=== PATIENT | male | born 1995 | race Caucasian/White ===

== ENCOUNTER 2017-10-13 11:10 | Emergency (ER) | payer MEDICARE, OTHER, MEDICAID ==
[~2017-10-13] VITALS: Ht 177.8 cm; Wt 66.8 kg
[2017-10-13] MEDS ORDERED: IPRATROPIUM BROMIDE 0.5 MG/2.5 ML NEB SOLUTION NEB ONE (11:30)
[2017-10-13] MEDS ORDERED: ALBUTEROL SULFATE 2.5 MG/0.5 ML NEB SOLUTION NEB ONE (11:30)
[2017-10-13] MEDS ORDERED: ALBU8.5H8 IH (11:36)
[2017-10-13] MEDS ORDERED: ALBU8HFA PO (11:36)
[2017-10-13 12:15] LABS: BASOPHILS % (AUTO) 0.5 % (0.0-2.0); EOSINOPHILS % (AUTO) 3.2 % (1.0-6.0); HEMATOCRIT 47.5 % (41-53); HEMOGLOBIN 16.8 g/dL (13.5-17.5); LYMPHOCYTES # (AUTO) 1.6 K/uL (1.0-4.8); LYMPHOCYTES % (AUTO) 32.6 % (22.0-44.0); MEAN CORPUSCULAR HEMOGLOBIN 29.6 pg (26.0-34.0); MEAN CORPUSCULAR HGB CONC 35.4 G/dL (31.0-37.0); MEAN CORPUSCULAR VOLUME 84 fL (80-100); MONOCYTES # (AUTO) 0.4 K/uL (0.1-1.0); MONOCYTES % (AUTO) 8.6 % (2.0-9.0); NEUTROPHILS # (AUTO) 2.6 K/uL (1.8-7.7); NEUTROPHILS % (AUTO) 55.1 % (40.0-70.0); PLATELET COUNT (AUTO) 137 K/uL (150-450); RED BLOOD CELL COUNT(AUTO) 5.68 MIL/uL (4.50-5.90); RED CELL DISTRIBUTION WIDTH 12.8 % (11.5-14.5)
[2017-10-13 12:28] LABS: ANION GAP 4 mmol/L (8-16); CALCIUM, TOTAL 9.3 mg/dL (8.8-10.5); CARBON DIOXIDE 34 mmol/L (22-29); CHLORIDE 103 mmol/L (98-107); CREATININE 0.96 mg/dL (0.60-1.30); GLOMERULAR FILTR. RATE CALC > 60 mL/min (>60); GLUCOSE,RANDOM 87 mg/dL (70-110); POTASSIUM 3.3 mmol/L (3.5-5.1); SODIUM SERUM 141 mmol/L (136-145); UREA NITROGEN, BLOOD 10 mg/dL (7-18)
[2017-10-13 12:36] LABS: ALANINE AMINOTRANSFERASE 281 U/L (12-78); ALBUMIN 4.1 g/dL (3.4-5.0); ALKALINE PHOSPHATASE 79 U/L (46-116); ASPARTATE AMINOTRANSFERASE 111 U/L (15-37); BILIRUBIN,TOTAL 0.7 mg/dL (0.1-1.0); TOTAL PROTEIN, SERUM 7.1 g/dL (6.4-8.2)
[2017-10-13 13:35] LABS: AMPHET/METH SCREEN,URINE NEGATIVE (NEGATIVE); BARBITURATE SCREEN, URINE NEGATIVE (NEGATIVE); BENZODIAZEPINES SCREEN,URINE NEGATIVE (NEGATIVE); CANNABINOID SCREEN,URINE POSITIVE (NEGATIVE); COCAINE SCREEN,URINE NEGATIVE (NEGATIVE); METHADONE SCREEN, URINE NEGATIVE (NEGATIVE); OPIATE SCREEN,URINE NEGATIVE (NEGATIVE)
[2017-10-13 13:37] LABS: PHENCYCLIDINE SCREEN,URINE NEGATIVE (NEGATIVE)
[2017-10-13] MEDS ORDERED: LORazepam 1 MG TABLET PO ONE (13:45)
[2017-10-13] MEDS ORDERED: ALBUTEROL SULFATE HFA 90 MCG/PUFF 8 GM INHALER IH ONE (14:00)
[2017-10-13] MEDS ORDERED: POTASSIUM CHLORIDE 20 MEQ ER TABLET PO ONE (14:15)
[2017-10-13 15:40] VITALS: BP 119/68
== END 2017-10-13 16:08 | disposition home or self-care (01) ==
LOC: EMS 11:11
DX: J45.901 Unspecified asthma with (acute) exacerbation (principal); F17.210 Nicotine dependence, cigarettes, uncomplicated; F12.90 Cannabis use, unspecified, uncomplicated
CPT/HCPCS: 94640; 99285; 99406; J3535

== ENCOUNTER 2017-11-11 09:14 | Emergency (ER) | payer OTHER, MEDICARE, MEDICAID ==
[~2017-11-11] VITALS: Ht 177.8 cm; Wt 65.9 kg
[~2017-11-11 09:14] MED LIST: ALBU8.5H8 IH; ALBU8HFA PO
[2017-11-11 09:35] VITALS: BP 129/79
[2017-11-11] MEDS ORDERED: ALPR0.5T8 PO (09:37)
[2017-11-11] MEDS ORDERED: LORazepam 2 MG TABLET PO ONE (10:30)
[2017-11-11 10:42] LABS: AMPHET/METH SCREEN,URINE NEGATIVE (NEGATIVE); BARBITURATE SCREEN, URINE NEGATIVE (NEGATIVE); BENZODIAZEPINES SCREEN,URINE POSITIVE (NEGATIVE); CANNABINOID SCREEN,URINE POSITIVE (NEGATIVE); COCAINE SCREEN,URINE NEGATIVE (NEGATIVE); METHADONE SCREEN, URINE NEGATIVE (NEGATIVE); OPIATE SCREEN,URINE NEGATIVE (NEGATIVE)
[2017-11-11 10:45] LABS: PHENCYCLIDINE SCREEN,URINE NEGATIVE (NEGATIVE)
== END 2017-11-11 12:36 | disposition home or self-care (01) ==
LOC: EMS 09:19
DX: F43.23 Adjustment disorder with mixed anxiety and depressed mood (principal); J45.909 Unspecified asthma, uncomplicated; F12.90 Cannabis use, unspecified, uncomplicated; F17.210 Nicotine dependence, cigarettes, uncomplicated
CPT/HCPCS: 99284; 99406

== ENCOUNTER 2017-11-23 22:10 | Emergency (ER) | payer OTHER, MEDICARE, MEDICAID ==
[~2017-11-23] VITALS: Ht 177.8 cm; Wt 150.0 kg
[~2017-11-23 22:10] MED LIST changes: +ALPR0.5T8 PO
[2017-11-23] MEDS ORDERED: LITH300C3 PO (22:27)
[2017-11-23] MEDS ORDERED: LITH20CA PO (22:27)
[2017-11-23] MEDS ORDERED: LITH300T PO (22:31)
[2017-11-23] MEDS ORDERED: HydrOXYzine HCL 10 MG TABLET PO ONE (23:30)
[2017-11-23 23:51] VITALS: BP 119/55
== END 2017-11-24 00:41 | disposition home or self-care (01) ==
LOC: EMS 22:11
DX: R07.9 Chest pain, unspecified (principal); F41.9 Anxiety disorder, unspecified; J45.909 Unspecified asthma, uncomplicated; F12.90 Cannabis use, unspecified, uncomplicated; F17.210 Nicotine dependence, cigarettes, uncomplicated
CPT/HCPCS: 93005; 99284

== ENCOUNTER 2018-01-12 18:00 | Emergency (ER) | payer OTHER, MEDICARE, MEDICAID ==
[~2018-01-12] VITALS: Ht 175.3 cm; Wt 61.4 kg
[~2018-01-12 18:00] MED LIST changes: +LITH300T PO
[2018-01-12] MEDS ORDERED: QUEtiapine FUMARATE 100 MG TABLET PO ONE (18:45)
[2018-01-12] MEDS ORDERED: ALPRAZolam 0.25 MG TABLET PO ONE (18:45)
[2018-01-12 19:11] LABS: BASOPHILS % (AUTO) 0.4 % (0.0-2.0); EOSINOPHILS % (AUTO) 1.5 % (1.0-6.0); LYMPHOCYTES # (AUTO) 1.4 K/uL (1.0-4.8); LYMPHOCYTES % (AUTO) 20.7 % (22.0-44.0); MEAN CORPUSCULAR HEMOGLOBIN 30.1 pg (26.0-34.0); MEAN CORPUSCULAR HGB CONC 35.8 G/dL (31.0-37.0); MEAN CORPUSCULAR VOLUME 84 fL (80-100); MONOCYTES # (AUTO) 0.5 K/uL (0.1-1.0); NEUTROPHILS # (AUTO) 4.8 K/uL (1.8-7.7); NEUTROPHILS % (AUTO) 70.4 % (40.0-70.0); PLATELET COUNT (AUTO) 149 K/uL (150-450); RED BLOOD CELL COUNT(AUTO) 5.31 MIL/uL (4.50-5.90); RED CELL DISTRIBUTION WIDTH 12.1 % (11.5-14.5)
[2018-01-12 19:18] LABS: AMPHET/METH SCREEN,URINE NEGATIVE (NEGATIVE); BARBITURATE SCREEN, URINE NEGATIVE (NEGATIVE); BENZODIAZEPINES SCREEN,URINE NEGATIVE (NEGATIVE); CANNABINOID SCREEN,URINE NEGATIVE (NEGATIVE); COCAINE SCREEN,URINE NEGATIVE (NEGATIVE); METHADONE SCREEN, URINE NEGATIVE (NEGATIVE); OPIATE SCREEN,URINE NEGATIVE (NEGATIVE)
[2018-01-12 19:19] LABS: PHENCYCLIDINE SCREEN,URINE NEGATIVE (NEGATIVE)
[2018-01-12 19:29] LABS: ANION GAP 5 mmol/L (8-16); CALCIUM, TOTAL 9.5 mg/dL (8.8-10.5); CARBON DIOXIDE 32 mmol/L (22-29); CHLORIDE 102 mmol/L (98-107); CREATININE 1.14 mg/dL (0.60-1.30); GLOMERULAR FILTR. RATE CALC > 60 mL/min (>60); GLUCOSE,RANDOM 100 mg/dL (70-110); POTASSIUM 3.8 mmol/L (3.5-5.1); SODIUM SERUM 139 mmol/L (136-145); UREA NITROGEN, BLOOD 12 mg/dL (7-18)
[2018-01-12 19:34] LABS: ALANINE AMINOTRANSFERASE 132 U/L (12-78); ALBUMIN 4.3 g/dL (3.4-5.0); ALKALINE PHOSPHATASE 82 U/L (46-116); ASPARTATE AMINOTRANSFERASE 77 U/L (15-37); BILIRUBIN,TOTAL 0.3 mg/dL (0.1-1.0); TOTAL PROTEIN, SERUM 6.9 g/dL (6.4-8.2)
[2018-01-12 22:15] VITALS: BP 122/79
== END 2018-01-12 22:53 | disposition home or self-care (01) ==
LOC: EMS 18:02
DX: R46.89 Other symptoms and signs involving appearance and behavior (principal); F32.9 Major depressive disorder, single episode, unspecified; J45.909 Unspecified asthma, uncomplicated; F17.210 Nicotine dependence, cigarettes, uncomplicated
CPT/HCPCS: 36415; 80053; 80178; 80307; 85025; 99285; 99406; G0480

== ENCOUNTER 2020-11-18 12:08 | Inpatient (IN) | payer MEDICARE, MEDICAID ==
[~2020-11-18] VITALS: Ht 172.7 cm; Wt 64.2 kg
[2020-11-18 16:28] VITALS: BP 129/78
[2020-11-18] MEDS: HALOPERIDOL 5 MG TABLET PO PRN (20:30)
[2020-11-18] MEDS: LORazepam 2 MG TABLET PO PRN (20:31)
[2020-11-18] MEDS ORDERED: FLUTICASONE/VILANTEROL 100-25 MCG/INH INHALER [14] IH PRN (21:15)
[2020-11-18] MEDS ORDERED: ALBUTEROL SULFATE HFA 90 MCG/PUFF 8 GM INHALER IH PRN (21:15)
[2020-11-19 03:27] VITALS: BP 100/61
[2020-11-19] MEDS: PANTOPRAZOLE SODIUM 40 MG DR TABLET PO SCH (06:26)
[2020-11-19] MEDS ORDERED: DOCUSATE SODIUM 100 MG CAPSULE PO PRN (07:00)
[2020-11-19] MEDS ORDERED: ALBUTEROL SULFATE HFA 90 MCG/PUFF 8 GM INHALER IH PRN (07:00)
[2020-11-19] MEDS ORDERED: IBUPROFEN 400 MG TABLET PO PRN (07:00)
[2020-11-19] MEDS ORDERED: ACETAMINOPHEN 325 MG TABLET PO PRN (07:00)
[2020-11-19] MEDS ORDERED: ONDANSETRON HCL 4 MG TABLET PO PRN (07:00)
[2020-11-19] MEDS ORDERED: MAGNESIUM HYDROXIDE SUSPENSION 30 ML UDCUP PO PRN (07:00)
[2020-11-19] MEDS ORDERED: CloNIDine HCL 0.1 MG TABLET PO PRN (07:00)
[2020-11-19] MEDS ORDERED: LOPERAMIDE HCL 2 MG CAPSULE PO PRN (07:00)
[2020-11-19] MEDS ORDERED: GuaiFENesin/D-METHORPHAN [SUGAR-FREE] 200-20MG/10 ML SYRUP UDCUP PO PRN (07:00)
[2020-11-19] MEDS ORDERED: MAG HYDROX/AL HYDROX/SIMETH ES 30 ML SUSPENSION UDCUP PO PRN (07:00)
[2020-11-19] MEDS ORDERED: PETROLATUM,WHITE 28 GM JELLY TP PRN (07:00)
[2020-11-19 08:28] LABS: BASOPHILS % (AUTO) 0.6 % (0.0-2.0); HEMATOCRIT 44.7 % (41-53); HEMOGLOBIN 15.3 g/dL (13.5-17.5); LYMPHOCYTES # (AUTO) 1.8 K/uL (1.0-4.8); LYMPHOCYTES % (AUTO) 35.4 % (22.0-44.0); MEAN CORPUSCULAR HEMOGLOBIN 28.9 pg (26.0-34.0); MEAN CORPUSCULAR HGB CONC 34.3 G/dL (31.0-37.0); MEAN CORPUSCULAR VOLUME 84 fL (80-100); MONOCYTES # (AUTO) 0.4 K/uL (0.1-1.0); NEUTROPHILS # (AUTO) 2.6 K/uL (1.8-7.7); PLATELET COUNT (AUTO) 151 K/uL (150-450); RED CELL DISTRIBUTION WIDTH 12.5 % (11.5-14.5)
[2020-11-19 08:32] VITALS: BP 119/66
[2020-11-19 08:44] LABS: HEMOGLOBIN A1C 5.6 % (3.8-5.6)
[2020-11-19] MEDS ORDERED: NICOTINE 21 MG/24 HOUR PATCH TD ONE (09:00)
[2020-11-19 09:09] LABS: ALANINE AMINOTRANSFERASE 353 U/L (12-78); ALBUMIN 3.9 g/dL (3.4-5.0); ALKALINE PHOSPHATASE 105 U/L (46-116); ANION GAP 7 mmol/L (8-16); ASPARTATE AMINOTRANSFERASE 180 U/L (15-37); BILIRUBIN,TOTAL 0.9 mg/dL (0.1-1.0); CARBON DIOXIDE 32 mmol/L (22-29); CHLORIDE 104 mmol/L (98-107); CHOL/HDL RATIO 3.3 (4.2-7.3); CHOLESTEROL 202 mg/dL (131-200); CREATININE 1.15 mg/dL (0.60-1.30); FREE T4 (FREE THYROXINE) 0.98 ng/dL (0.76-1.46); GLOMERULAR FILTR. RATE CALC > 60 mL/min (>60); GLUCOSE,RANDOM 108 mg/dL (70-110); HDL CHOLESTEROL 62 mg/dL (40-60); LDL CHOL (CALC.) 95 mg/dL (0-130); POTASSIUM 3.7 mmol/L (3.5-5.1); SODIUM SERUM 143 mmol/L (136-145); THYROID STIMULATING HORMONE 1.78 uIU/mL (0.36-3.74); TOTAL PROTEIN, SERUM 6.3 g/dL (6.4-8.2); TRIGLYCERIDES 225 mg/dL (15-150); UREA NITROGEN, BLOOD 12 mg/dL (7-18)
[2020-11-19] MEDS: NICOTINE 14 MG/24 HOUR PATCH TD PRN ×3 (09:33→09:44)
[2020-11-19] MEDS: LORazepam 2 MG TABLET PO PRN ×2 (09:39→20:34)
[2020-11-19] MEDS: HALOPERIDOL 5 MG TABLET PO PRN (09:39)
[2020-11-19] MEDS: BACITRACIN 28 GM OINTMENT TP SCH ×2 (09:42→17:45)
[2020-11-19] MEDS: SERTRALINE HCL 50 MG TABLET PO SCH (11:21)
[2020-11-19 16:26] VITALS: BP 109/66
[2020-11-19] MEDS: ATORVASTATIN CALCIUM 20 MG TABLET PO SCH (20:22)
[2020-11-19] MEDS: TraZODone HCL 50 MG TABLET PO SCH (20:22)
[2020-11-20 01:01] VITALS: BP 111/73
[2020-11-20] MEDS: ZOLPIDEM TARTRATE 10 MG TABLET PO PRN ×2 (01:14→20:19)
[2020-11-20] MEDS: PANTOPRAZOLE SODIUM 40 MG DR TABLET PO SCH (07:02)
[2020-11-20 08:28] LABS: APPEARANCE,URINE CLEAR (CLEAR); BILIRUBIN,URINE NEGATIVE (NEGATIVE); GLUCOSE, URINE (UA) NEGATIVE (NEGATIVE); KETONES,URINE NEGATIVE (NEGATIVE); LEUKOCYTE ESTERASE ,URINE NEGATIVE (NEGATIVE); NITRATE,URINE NEGATIVE (NEGATIVE); OCCULT BLOOD,URINE NEGATIVE (NEGATIVE); PROTEIN,URINE NEGATIVE (NEGATIVE); UROBILINOGEN,URINE 0.2 mg/dL (<=1.0)
[2020-11-20 08:33] LABS: AMPHET/METH SCREEN,URINE NEGATIVE (NEGATIVE); BARBITURATE SCREEN, URINE NEGATIVE (NEGATIVE); BENZODIAZEPINES SCREEN,URINE NEGATIVE (NEGATIVE); CANNABINOID SCREEN,URINE POSITIVE (NEGATIVE); COCAINE SCREEN,URINE NEGATIVE (NEGATIVE); METHADONE SCREEN, URINE NEGATIVE (NEGATIVE); OPIATE SCREEN,URINE NEGATIVE (NEGATIVE)
[2020-11-20 08:34] LABS: PHENCYCLIDINE SCREEN,URINE NEGATIVE (NEGATIVE)
[2020-11-20] MEDS: SERTRALINE HCL 50 MG TABLET PO SCH (09:18)
[2020-11-20] MEDS: LORazepam 2 MG TABLET PO PRN (09:18)
[2020-11-20] MEDS: BACITRACIN 28 GM OINTMENT TP SCH ×2 (09:19→16:34)
[2020-11-20 10:00] VITALS: BP 113/68
[2020-11-20] MEDS: LORazepam 1 MG TABLET PO PRN ×2 (14:06→19:38)
[2020-11-20] MEDS ORDERED: NICOTINE POLACRILEX 2 MG LOZENGE PO PRN (14:45)
[2020-11-20 16:21] VITALS: BP 91/60
[2020-11-20] MEDS: TraZODone HCL 50 MG TABLET PO SCH (20:19)
[2020-11-20] MEDS: ATORVASTATIN CALCIUM 20 MG TABLET PO SCH (20:19)
[2020-11-21 01:03] VITALS: BP 104/62
[2020-11-21] MEDS: LORazepam 1 MG TABLET PO PRN ×4 (01:36→20:02)
[2020-11-21] MEDS: PANTOPRAZOLE SODIUM 40 MG DR TABLET PO SCH (06:27)
[2020-11-21 08:26] VITALS: BP 126/83
[2020-11-21] MEDS: BACITRACIN 28 GM OINTMENT TP SCH ×2 (08:51→16:38)
[2020-11-21] MEDS: SERTRALINE HCL 50 MG TABLET PO SCH (08:51)
[2020-11-21] MEDS: HALOPERIDOL 5 MG TABLET PO PRN (08:52)
[2020-11-21] MEDS ORDERED: OMEGA-3/DHA/EPA/FISH OIL 1,000 MG CAPSULE PO ONE (14:00)
[2020-11-21 18:12] VITALS: BP 93/62
[2020-11-21] MEDS: ATORVASTATIN CALCIUM 20 MG TABLET PO SCH (20:02)
[2020-11-21] MEDS: ZOLPIDEM TARTRATE 10 MG TABLET PO PRN (20:02)
[2020-11-21] MEDS: TraZODone HCL 50 MG TABLET PO SCH (20:02)
[2020-11-22 00:27] VITALS: BP 92/48
[2020-11-22] MEDS: NICOTINE POLACRILEX 2 MG LOZENGE PO PRN ×4 (02:17→14:44)
[2020-11-22] MEDS: LORazepam 1 MG TABLET PO PRN ×3 (05:35→16:00)
[2020-11-22] MEDS: PANTOPRAZOLE SODIUM 40 MG DR TABLET PO SCH (06:29)
[2020-11-22 08:27] VITALS: BP 111/67
[2020-11-22] MEDS: OMEGA-3/DHA/EPA/FISH OIL 1,000 MG CAPSULE PO SCH (09:19)
[2020-11-22] MEDS: SERTRALINE HCL 50 MG TABLET PO SCH (09:19)
[2020-11-22] MEDS: BACITRACIN 28 GM OINTMENT TP SCH ×2 (09:20→16:00)
[2020-11-22] MEDS: HALOPERIDOL 5 MG TABLET PO PRN (16:00)
[2020-11-22 16:09] VITALS: BP 109/65
[2020-11-22] MEDS: TraZODone HCL 50 MG TABLET PO SCH (20:03)
[2020-11-22] MEDS: ATORVASTATIN CALCIUM 20 MG TABLET PO SCH (20:03)
[2020-11-22] MEDS: ZOLPIDEM TARTRATE 10 MG TABLET PO PRN (21:01)
[2020-11-22 23:37] VITALS: BP 115/71
[2020-11-23] MEDS: HALOPERIDOL 5 MG TABLET PO PRN (05:34)
[2020-11-23] MEDS: LORazepam 1 MG TABLET PO PRN (05:34)
[2020-11-23] MEDS: NICOTINE POLACRILEX 2 MG LOZENGE PO PRN ×2 (06:27→10:57)
[2020-11-23] MEDS: PANTOPRAZOLE SODIUM 40 MG DR TABLET PO SCH (06:31)
[2020-11-23 07:24] LABS: COVID AG,FIA SOURCE NASOPHARYNGEAL
[2020-11-23 08:20] VITALS: BP 110/60
[2020-11-23] MEDS: BACITRACIN 28 GM OINTMENT TP SCH (08:34)
[2020-11-23] MEDS: SERTRALINE HCL 50 MG TABLET PO SCH (08:34)
[2020-11-23] MEDS: OMEGA-3/DHA/EPA/FISH OIL 1,000 MG CAPSULE PO SCH (08:34)
[2020-11-23] MEDS ORDERED: SERT-158 PO (13:26)
[2020-11-23] MEDS ORDERED: TRAZ-184 PO (13:27)
[2020-11-23] MEDS ORDERED: PANT-31 PO (13:32)
[2020-11-23] MEDS ORDERED: ATOR20TA86 PO (13:33)
== END 2020-11-23 16:43 | disposition home or self-care (01) | DRG 885 ==
LOC: B2X 15:10
PROVIDERS: ADMIT Psychiatry & Neurology Child & Adolescent Psychiatry; ATTEND Psychiatry & Neurology Child & Adolescent Psychiatry
DX: F33.2 Major depressive disorder, recurrent severe without psychotic features (principal); J45.909 Unspecified asthma, uncomplicated; Z20.822 Contact with and (suspected) exposure to COVID-19; E78.5 Hyperlipidemia, unspecified; F12.10 Cannabis abuse, uncomplicated; R74.01 Elevation of levels of liver transaminase levels
CPT/HCPCS: 80053; 80061; 80307; 81003; 83036; 84439; 84443; 85025; 87426; A9575

== ENCOUNTER 2021-03-26 05:46 | Inpatient (IN) | payer MEDICARE, MEDICAID ==
[~2021-03-26] VITALS: Ht 170.2 cm; Wt 78.0 kg
[~2021-03-26 05:46] MED LIST changes: -ALBU8.5H8 IH; -ALBU8HFA PO; -ALPR0.5T8 PO; +ATOR20TA86 PO; -LITH300T PO; +PANT-31 PO; +SERT-158 PO; +TRAZ-184 PO
[2021-03-26] MEDS: HALOPERIDOL 5 MG TABLET PO PRN (10:18)
[2021-03-26] MEDS: LORazepam 2 MG TABLET PO PRN (10:18)
[2021-03-26] MEDS: BACITRACIN 28 GM OINTMENT TP SCH (17:00)
[2021-03-26 17:01] VITALS: BP 119/70
[2021-03-26] MEDS: ATORVASTATIN CALCIUM 20 MG TABLET PO SCH (20:12)
[2021-03-26] MEDS: ZOLPIDEM TARTRATE 10 MG TABLET PO PRN (20:13)
[2021-03-27] MEDS: LORazepam 2 MG TABLET PO PRN ×3 (02:58→17:21)
[2021-03-27 06:12] VITALS: BP 117/68
[2021-03-27 07:50] LABS: BASOPHILS % (AUTO) 0.4 % (0.0-2.0); HEMATOCRIT 45.1 % (41-53); HEMOGLOBIN 15.6 g/dL (13.5-17.5); LYMPHOCYTES # (AUTO) 1.7 K/uL (1.0-4.8); LYMPHOCYTES % (AUTO) 25.5 % (22.0-44.0); MEAN CORPUSCULAR HEMOGLOBIN 29.2 pg (26.0-34.0); MEAN CORPUSCULAR HGB CONC 34.6 G/dL (31.0-37.0); MEAN CORPUSCULAR VOLUME 84 fL (80-100); MONOCYTES # (AUTO) 0.8 K/uL (0.1-1.0); MONOCYTES % (AUTO) 11.8 % (2.0-9.0); NEUTROPHILS % (AUTO) 61.3 % (40.0-70.0); PLATELET COUNT (AUTO) 123 K/uL (150-450); RED BLOOD CELL COUNT(AUTO) 5.35 MIL/uL (4.50-5.90); RED CELL DISTRIBUTION WIDTH 11.9 % (11.5-14.5)
[2021-03-27 08:08] VITALS: BP 112/72
[2021-03-27] MEDS: NICOTINE 21 MG/24 HOUR PATCH TD SCH (08:12)
[2021-03-27] MEDS: BACITRACIN 28 GM OINTMENT TP SCH ×2 (08:12→16:55)
[2021-03-27 08:14] LABS: ALANINE AMINOTRANSFERASE 243 U/L (12-78); ALBUMIN 3.7 g/dL (3.4-5.0); ALKALINE PHOSPHATASE 138 U/L (46-116); ANION GAP 5 mmol/L (8-16); ASPARTATE AMINOTRANSFERASE 74 U/L (15-37); BILIRUBIN,TOTAL 0.6 mg/dL (0.1-1.0); CALCIUM, TOTAL 8.6 mg/dL (8.8-10.5); CARBON DIOXIDE 33 mmol/L (22-29); CHLORIDE 103 mmol/L (98-107); CHOL/HDL RATIO 3.3 (4.2-7.3); CHOLESTEROL 188 mg/dL (131-200); CREATININE 1.16 mg/dL (0.60-1.30); GLOMERULAR FILTR. RATE CALC > 60 mL/min (>60); GLUCOSE,RANDOM 120 mg/dL (70-110); HDL CHOLESTEROL 57 mg/dL (40-60); LDL CHOL (CALC.) 109 mg/dL (0-130); POTASSIUM 3.6 mmol/L (3.5-5.1); SODIUM SERUM 141 mmol/L (136-145); THYROID STIMULATING HORMONE 1.12 uIU/mL (0.36-3.74); TRIGLYCERIDES 109 mg/dL (15-150); UREA NITROGEN, BLOOD 11 mg/dL (7-18)
[2021-03-27] MEDS ORDERED: PANTOPRAZOLE SODIUM 40 MG DR TABLET PO SCH (09:00)
[2021-03-27] MEDS: HALOPERIDOL 5 MG TABLET PO PRN ×2 (09:29→17:21)
[2021-03-27] MEDS ORDERED: IBUPROFEN 600 MG TABLET PO PRN (12:15)
[2021-03-27] MEDS ORDERED: BACITRACIN 28 GM OINTMENT TP PRN (12:15)
[2021-03-27] MEDS ORDERED: OMEPRAZOLE 20 MG CAPSULE PO PRN (12:15)
[2021-03-27] MEDS ORDERED: ACETAMINOPHEN 325 MG TABLET PO PRN (12:15)
[2021-03-27] MEDS ORDERED: DOCUSATE SODIUM 100 MG CAPSULE PO PRN (12:15)
[2021-03-27] MEDS ORDERED: LOPERAMIDE HCL 2 MG CAPSULE PO PRN (12:15)
[2021-03-27] MEDS ORDERED: MAG HYDROX/AL HYDROX/SIMETH ES 30 ML SUSPENSION UDCUP PO PRN (12:15)
[2021-03-27] MEDS ORDERED: CloNIDine HCL 0.1 MG TABLET PO PRN (12:15)
[2021-03-27] MEDS ORDERED: MAGNESIUM HYDROXIDE SUSPENSION 30 ML UDCUP PO PRN (12:15)
[2021-03-27] MEDS ORDERED: PETROLATUM,WHITE 28 GM JELLY TP PRN (12:15)
[2021-03-27] MEDS ORDERED: BENZOCAINE/MENTHOL LOZENGE PO PRN (12:15)
[2021-03-27] MEDS ORDERED: ALBUTEROL SULFATE HFA 90 MCG/PUFF 8 GM INHALER IH PRN (12:15)
[2021-03-27] MEDS ORDERED: ONDANSETRON HCL 4 MG TABLET PO PRN (12:15)
[2021-03-27] MEDS: GABAPENTIN 300 MG CAPSULE PO SCH ×2 (12:26→16:55)
[2021-03-27] MEDS: SERTRALINE HCL 50 MG TABLET PO SCH (12:26)
[2021-03-27] MEDS: ATORVASTATIN CALCIUM 20 MG TABLET PO SCH (20:13)
[2021-03-27] MEDS: ZOLPIDEM TARTRATE 10 MG TABLET PO PRN (20:13)
[2021-03-27] MEDS: OLANZapine 10 MG TABLET PO SCH (20:13)
[2021-03-28 03:35] VITALS: BP 115/70
[2021-03-28] MEDS: HALOPERIDOL 5 MG TABLET PO PRN ×2 (06:09→16:03)
[2021-03-28] MEDS: LORazepam 2 MG TABLET PO PRN ×2 (06:09→16:03)
[2021-03-28 08:10] VITALS: BP 110/70
[2021-03-28] MEDS: NICOTINE 21 MG/24 HOUR PATCH TD SCH (08:37)
[2021-03-28] MEDS: SERTRALINE HCL 50 MG TABLET PO SCH (08:37)
[2021-03-28] MEDS: GABAPENTIN 300 MG CAPSULE PO SCH ×3 (08:37→16:02)
[2021-03-28] MEDS: BACITRACIN 28 GM OINTMENT TP SCH ×2 (08:37→16:03)
[2021-03-28 16:08] VITALS: BP 128/74
[2021-03-28] MEDS: ATORVASTATIN CALCIUM 20 MG TABLET PO SCH (20:14)
[2021-03-28] MEDS: OLANZapine 10 MG TABLET PO SCH (20:14)
[2021-03-28] MEDS: ZOLPIDEM TARTRATE 10 MG TABLET PO PRN (22:33)
[2021-03-29] MEDS: HALOPERIDOL 5 MG TABLET PO PRN ×2 (00:39→08:05)
[2021-03-29] MEDS: LORazepam 2 MG TABLET PO PRN ×2 (00:39→12:26)
[2021-03-29 00:52] VITALS: BP 117/75
[2021-03-29] MEDS: GABAPENTIN 300 MG CAPSULE PO SCH ×3 (08:05→16:20)
[2021-03-29] MEDS: SERTRALINE HCL 50 MG TABLET PO SCH (08:05)
[2021-03-29] MEDS: NICOTINE 21 MG/24 HOUR PATCH TD SCH (08:05)
[2021-03-29 08:07] VITALS: BP 138/86
[2021-03-29] MEDS: BACITRACIN 28 GM OINTMENT TP SCH ×2 (08:39→16:21)
[2021-03-29 16:05] VITALS: BP 109/63
[2021-03-29] MEDS ORDERED: DiphenhydrAMINE HCL 50 MG/ML VIAL ONE (19:21)
[2021-03-29] MEDS ORDERED: LORazepam 2 MG/ML VIAL ONE (19:21)
[2021-03-29] MEDS ORDERED: HALOPERIDOL LACTATE 5 MG/ML VIAL ONE (19:21)
[2021-03-29] MEDS ORDERED: LORazepam 2 MG/ML VIAL IM ONE (19:30)
[2021-03-29] MEDS ORDERED: DiphenhydrAMINE HCL 50 MG/ML VIAL IM ONE (19:30)
[2021-03-29] MEDS ORDERED: HALOPERIDOL LACTATE 5 MG/ML VIAL IM ONE (19:30)
[2021-03-29] MEDS: ATORVASTATIN CALCIUM 20 MG TABLET PO SCH (21:00)
[2021-03-29] MEDS: OLANZapine 10 MG TABLET PO SCH (21:00)
[2021-03-30] MEDS: ZOLPIDEM TARTRATE 10 MG TABLET PO PRN ×3 (02:13→23:36)
[2021-03-30 04:23] VITALS: BP 119/82
[2021-03-30 07:30] VITALS: BP 126/91
[2021-03-30 08:00] VITALS: BP 126/91
[2021-03-30] MEDS: SERTRALINE HCL 50 MG TABLET PO SCH (08:17)
[2021-03-30] MEDS: HydrOXYzine PAMOATE 25 MG CAPSULE PO SCH ×3 (08:17→16:28)
[2021-03-30] MEDS: GABAPENTIN 300 MG CAPSULE PO SCH ×3 (08:18→16:28)
[2021-03-30] MEDS: NICOTINE 21 MG/24 HOUR PATCH TD SCH (08:18)
[2021-03-30] MEDS: BACITRACIN 28 GM OINTMENT TP SCH ×2 (08:19→16:28)
[2021-03-30] MEDS: HALOPERIDOL 5 MG TABLET PO PRN ×2 (10:55→14:59)
[2021-03-30 15:59] VITALS: BP 110/65
[2021-03-30 16:39] VITALS: BP 110/65
[2021-03-30] MEDS: ATORVASTATIN CALCIUM 20 MG TABLET PO SCH (20:40)
[2021-03-30] MEDS: OLANZapine 10 MG TABLET PO SCH (20:40)
[2021-03-31] VITALS: BP 128/84
[2021-03-31] MEDS: HALOPERIDOL 5 MG TABLET PO PRN (05:51)
[2021-03-31 08:05] LABS: COVID AG,FIA SOURCE NASOPHARYNGEAL
[2021-03-31] MEDS: HydrOXYzine PAMOATE 25 MG CAPSULE PO SCH (08:11)
[2021-03-31] MEDS: SERTRALINE HCL 50 MG TABLET PO SCH (08:11)
[2021-03-31] MEDS: NICOTINE 21 MG/24 HOUR PATCH TD SCH (08:11)
[2021-03-31] MEDS: GABAPENTIN 300 MG CAPSULE PO SCH (08:11)
[2021-03-31 08:13] VITALS: BP 110/74
[2021-03-31] MEDS: BACITRACIN 28 GM OINTMENT TP SCH (09:38)
[2021-03-31] MEDS ORDERED: OLAN10TA74 PO (11:00)
[2021-03-31] MEDS ORDERED: GABA-1181 PO (11:00)
[2021-03-31] MEDS ORDERED: HYDR-4031 PO (11:00)
[2021-03-31] MEDS ORDERED: SERT-158 PO (11:01)
== END 2021-03-31 12:00 | disposition home or self-care (01) | DRG 885 ==
LOC: B2X 09:53
PROVIDERS: ADMIT Psychiatry & Neurology Psychiatry; ATTEND Psychiatry & Neurology Psychiatry
DX: F25.9 Schizoaffective disorder, unspecified (principal); R45.851 Suicidal ideations; F84.0 Autistic disorder; F41.9 Anxiety disorder, unspecified; F12.90 Cannabis use, unspecified, uncomplicated; G47.00 Insomnia, unspecified; Z20.822 Contact with and (suspected) exposure to COVID-19; K59.00 Constipation, unspecified; R73.03 Prediabetes; R74.01 Elevation of levels of liver transaminase levels; Z72.0 Tobacco use; Z71.51 Drug abuse counseling and surveillance of drug abuser; Z71.6 Tobacco abuse counseling
CPT/HCPCS: 80053; 80061; 83036; 84436; 84439; 84443; 85025; G0480; J1200; J1630; J2060